=== PATIENT | female | born 1985 | race African-American/Black ===

== ENCOUNTER 2017-03-15 06:59 | Emergency (ER) | payer MEDICAID ==
[~2017-03-15] VITALS: Ht 154.9 cm; Wt 105.0 kg
[~2017-03-15 06:59] MED LIST: no meds
[2017-03-15 09:47] VITALS: BP 133/87
== END 2017-03-15 09:48 | disposition home or self-care (01) ==
LOC: ER 06:59
DX: J06.9 Acute upper respiratory infection, unspecified (principal); R09.81 Nasal congestion; F17.210 Nicotine dependence, cigarettes, uncomplicated
CPT/HCPCS: 99283

== ENCOUNTER 2017-05-20 09:42 | Emergency (ER) | payer MEDICAID ==
[~2017-05-20] VITALS: Ht 154.9 cm; Wt 100.0 kg
[2017-05-20] MEDS ORDERED: IBUPROFEN 600MG TABLET PO ONE (11:15)
[2017-05-20 11:24] VITALS: BP 139/98
== END 2017-05-20 11:47 | disposition home or self-care (01) ==
LOC: ER 09:50
DX: J02.9 Acute pharyngitis, unspecified (principal); F17.200 Nicotine dependence, unspecified, uncomplicated
CPT/HCPCS: 81025; 99283

== ENCOUNTER 2017-06-21 10:50 | Emergency (ER) | payer MEDICAID ==
[~2017-06-21] VITALS: Ht 154.9 cm; Wt 95.0 kg
[2017-06-21 11:05] VITALS: BP 125/77
== END 2017-06-21 15:30 | disposition left against medical advice (07) ==
LOC: ER 12:02
DX: R51 Headache (principal); Z53.21 Procedure and treatment not carried out due to patient leaving prior to being seen by health care provider

== ENCOUNTER 2018-06-02 13:05 | Emergency (ER) | payer MEDICAID | END 2018-06-02 17:37 | disposition left against medical advice (07) | LOC: ER 13:05 | DX: J02.9 Acute pharyngitis, unspecified (principal); Z53.21 Procedure and treatment not carried out due to patient leaving prior to being seen by health care provider ==

== ENCOUNTER 2018-10-26 04:30 | Emergency (ER) | payer MEDICAID ==
[~2018-10-26] VITALS: Ht 154.9 cm; Wt 101.0 kg
[2018-10-26] MEDS ORDERED: PENICILLIN G BENZATHINE 1,200,000 UNITS/2ML SYR IM ONE (07:00)
[2018-10-26 07:03] VITALS: BP 156/85
== END 2018-10-26 07:03 | disposition home or self-care (01) ==
LOC: ER 04:49
DX: J03.90 Acute tonsillitis, unspecified (principal); F17.210 Nicotine dependence, cigarettes, uncomplicated; Z91.14 Patient's other noncompliance with medication regimen; Z98.890 Other specified postprocedural states
CPT/HCPCS: 96372; 99283; J0561; Z7610